=== PATIENT | male | born 1935 | race Caucasian/White ===

== ENCOUNTER 2016-11-19 10:05 | Emergency (ER) | payer MEDICARE ==
[~2016-11-19] VITALS: Ht 162.6 cm; Wt 84.4 kg
[2016-11-19 10:05] VITALS: BP 121/70; PULSE 66; RESP 22; TEMP 95.7; O2SAT 98
[2016-11-19] MEDS ORDERED: NACL 0.9% 1,000 ML IV ONE (11:00)
[2016-11-19 11:20] LABS: ANION GAP 8 (5-15); CALCIUM 9.3 mg/dL (8.4-11.0); CHLORIDE 102 mmol/L (98-107); CREATININE 1.33 mg/dL (0.55-1.30); GLUCOSE 325 mg/dL (70-99); POTASSIUM 3.8 mmol/L (3.5-5.1); SODIUM SERUM 138 mmol/L (136-145); UREA NITROGEN, BLOOD 20 mg/dL (8-21)
[2016-11-19 11:22] LABS: BASOPHILS % (AUTO) 0.3 % (0.0-2.0); EOSINOPHILS # (AUTO) 0.1 K/uL (0.0-0.4); EOSINOPHILS % (AUTO) 2.2 % (0.0-4.0); HEMATOCRIT 35.5 % (36-54); HEMOGLOBIN 11.8 g/dL (14.0-18.0); LYMPHOCYTES # (AUTO) 0.6 K/uL (1.0-5.5); LYMPHOCYTES % (AUTO) 9.2 % (20.5-51.5); MEAN CORPUSCULAR HEMOGLOBIN 28 pg (27-31); MEAN CORPUSCULAR HGB CONC 33 % (32-36); MEAN CORPUSCULAR VOLUME 85 fL (79.0-98.0); MONOCYTES # (AUTO) 0.4 K/uL (0.0-1.0); MONOCYTES % (AUTO) 5.5 % (1.7-9.3); NEUTROPHILS # (AUTO) 5.6 K/uL (1.8-7.7); NEUTROPHILS % (AUTO) 82.8 % (40.0-70.0); PLATELET COUNT (AUTO) 136 K/uL (130-430); RED BLOOD CELL COUNT(AUTO) 4.16 MIL/uL (4.2-6.2); RED CELL DISTRIBUTION WIDTH 15.4 % (9.0-15.0); WHITE BLOOD COUNT (AUTO) 6.7 K/uL (4.8-10.8)
[2016-11-19 11:23] LABS: INR 1.4 (0.80-1.20); PROTHROMBIN TIME 15.8 SECS (9.5-12.5)
[2016-11-19] MEDS ORDERED: LIDOCAINE/EPI 1% 1:100000 20 ML VIAL INJ ONE ×2 (12:44→13:15)
[2016-11-19 15:16] VITALS: BP 136/82; PULSE 65; RESP 18; TEMP 97.6; O2SAT 99
== END 2016-11-19 15:16 | disposition home or self-care (01) ==
LOC: SED 10:05
DX: S01.111A Laceration without foreign body of right eyelid and periocular area, initial encounter (principal); S81.012A Laceration without foreign body, left knee, initial encounter; S51.811A Laceration without foreign body of right forearm, initial encounter; S09.90XA Unspecified injury of head, initial encounter; D64.9 Anemia, unspecified; E11.65 Type 2 diabetes mellitus with hyperglycemia; I10 Essential (primary) hypertension; I50.9 Heart failure, unspecified; I25.2 Old myocardial infarction; I48.91 Unspecified atrial fibrillation; H40.9 Unspecified glaucoma; Z88.1 Allergy status to other antibiotic agents; Z88.0 Allergy status to penicillin; Z88.2 Allergy status to sulfonamides; Z88.8 Allergy status to other drugs, medicaments and biological substances; Z95.1 Presence of aortocoronary bypass graft; W19.XXXA Unspecified fall, initial encounter; Y93.89 Activity, other specified; Y99.8 Other external cause status; Y92.89 Other specified places as the place of occurrence of the external cause
CPT/HCPCS: 36415; 70450-TC; 72125-TC; 73090; 73560-TC; 80048; 82962; 85025; 85610-TC; 85730-TC; 96360; 99285; J7030